=== PATIENT | male | born 1985 | race Caucasian/White ===

== ENCOUNTER 2021-03-26 22:30 | Emergency (ER) | payer OTHER ==
[2021-03-27] MEDS ORDERED: Ketorolac 15 MG/ML SDV IM ONE (00:15)
--- NOTE | 2021-03-27 00:16 | EDM.PDOC ---
ED HPI GENERAL MEDICAL PROBLEM - General Chief Complaint: Respiratory Problem Stated Complaint: COVID+/ FEVER,COUGH,NAUSEA,FATIGUE,DIARRHEA Time Seen by Provider: 03/26/21 23:45 Source of Information: Reports: Patient History Limitations: Reports: No Limitations - History of Present Illness INITIAL COMMENTS - FREE TEXT/NARRATIVE: Patient 35-year-old male with past medical history of obesity presenting with a chief complaint of fever. Patient states he is tested positive for Covid on Saturday. He reports intermittent fevers ever since then. His temperature has ranged from 100.5-103.5. Patient states he is taking Tylenol and using a cool pack on his forehead. Patient is concerned primarily about the fever and its not getting lower. Patient denies any difficulty breathing, chest pain, respiratory distress, lower extremity swelling, vomiting, diarrhea. Patient is here wondering if he can get something else for the fever. Generalized Pain Score (Numeric/FACES): 5 - Related Data Allergies Allergy/AdvReac Type Severity Reaction Status Date / Time No Known Allergies Allergy Verified 03/26/21 23:03 Home Meds: Home Meds SUMAtriptan [Imitrex] 1 tab PO ASDIRECTED PRN 03/26/21 [History] Past Medical History Neurological History: Reports: Migraines - Infectious Disease History Infectious Disease History: Reports: Novel Coronavirus Social & Family History - Tobacco Use Tobacco Use Status *Q: Never Tobacco User Second Hand Smoke Exposure: No - Caffeine Use Caffeine Use: Reports: None - Recreational Drug Use Recreational Drug Use: No ED ROS GENERAL - Review of Systems Review Of Systems: See Below Free Text/Narrative/Comment: In addition to that documented in the HPI above, the additional ROS was obtained: Constitutional: Per HPI Eyes: Denies vision changes ENMT: Denies sore throat CV: Denies chest pain Resp: Denies SOB GI: Denies vomiting or diarrhea : Denies painful urination MSK: Denies recent trauma Skin: Denies new rashes Neuro: Denies new numbness or tingling or weakness Endocrine: Denies unexpected weight loss Heme: Denies bleeding disorders ED EXAM, GENERAL - Physical Exam Exam: See Below Free Text/Narrative:: I have reviewed the triage vital signs Const: Well nourished, well developed, appears stated age Eyes: Pupils Equal and reactive to light bilaterally, no conjunctival injection HENT: No signs of trauma or swelling, Neck supple without meningismus CV: Regular Rate Rhythm, Warm, well-perfused extremities RESP: Unlabored respiratory effort GI: soft, non-tender, non-distended, no masses MSK: No gross deformities appreciated Skin: Warm, dry. 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 Sensation and motor function of extremities grossly intact. Psych: Appropriate mood and affect. Course - Vital Signs Last Recorded V/S: Last Vital Signs Temp 38.7 C H 03/26/21 23:31 Pulse 97 03/26/21 23:31 Resp 21 H 03/26/21 23:31 BP 114/68 03/26/21 23:31 Pulse Ox 94 L 03/26/21 23:31 - Orders/Labs/Meds Meds: Medications Discontinued Medications Generic Name Dose Route Start Last Admin Trade Name Yanely PRN Reason Stop Dose Admin Ketorolac Tromethamine 30 mg 03/27/21 00:15 03/27/21 00:27 Ketorolac 15 Mg/Ml Sdv IM 03/27/21 00:16 30 mg ONETIME ONE Administration Departure - Departure Time of Disposition: 00:16 Disposition: Home, Self-Care 01 Clinical Impression: COVID-19 - Discharge Information Instructions: COVID-19 Frequently Asked Questions, 10 Things You Can Do to Manage Your COVID-19 Symptoms at Home - [facility] (12/30/2020) Referrals: PCP,None [Primary Care Provider] - Forms: ED Department Discharge Sepsis Event Note (ED) - Focused Exam Vital Signs: Vital Signs Temp Pulse Resp BP Pulse Ox 03/26/21 23:31 38.7 C H 97 21 H 114/68 94 L 03/26/21 23:01 38.9 C H 101 H 20 154/78 H 91 L - Assessment/Plan Assessment:: Patient 35-year-old male with known Covid. Patient presents for fever. Temperature here is elevated the patient is not tachycardic nor hypoxic. No ev idence of respiratory distress. Patient is extremely comfortable in appearance. Does not have any indication for further work-up at this time. No indication for additional treatment besides Toradol which will be given in the emergency room. Return precautions discussed. Patient agrees with plan of care.
== END 2021-03-27 00:47 | disposition home or self-care (01) ==
LOC: JD.ED 22:30
DX: U07.1 COVID-19 (principal); G43.909 Migraine, unspecified, not intractable, without status migrainosus; Z79.899 Other long term (current) drug therapy
CPT/HCPCS: 96372; 99283; J1885

== ENCOUNTER 2022-10-06 20:15 | Emergency (ER) | payer OTHER ==
[2022-10-06] MEDS ORDERED: Diphtheria,Pertussis(Acell),Tetanus Vaccine 0.5 ML Syringe IM ONE (20:38)
[2022-10-06] MEDS ORDERED: Lidocaine 1% 10 ML MDV INJECT ONE (20:38)
== END 2022-10-06 21:48 | disposition home or self-care (01) ==
LOC: JD.ED 20:15
DX: S61.011A Laceration without foreign body of right thumb without damage to nail, initial encounter (principal); Z23 Encounter for immunization; Z86.16 Personal history of COVID-19; W23.1XXA Caught, crushed, jammed, or pinched between stationary objects, initial encounter; Y99.0 Civilian activity done for income or pay
CPT/HCPCS: 12001; 90471; 90715; 99282-25; 99283; J3490